=== PATIENT | male | born 1965 | race Caucasian/White ===

== ENCOUNTER 2018-12-09 07:30 | Emergency (ER) | payer MEDICARE, MEDICAID ==
[~2018-12-09] VITALS: Ht 175.3 cm; Wt 79.5 kg
[~2018-12-09 07:30] MED LIST: ARIP30TA7 PO; GUAI1TBM19 PO; PARO40TA PO
[2018-12-09 07:48] VITALS: BP 140/81
== END 2018-12-09 08:50 | disposition home or self-care (01) ==
LOC: ER 07:31
DX: F19.10 Other psychoactive substance abuse, uncomplicated (principal); F12.90 Cannabis use, unspecified, uncomplicated; F15.90 Other stimulant use, unspecified, uncomplicated; Z02.89 Encounter for other administrative examinations; Z88.8 Allergy status to other drugs, medicaments and biological substances; Z79.899 Other long term (current) drug therapy
CPT/HCPCS: 99281